=== PATIENT | male | born 1995 | race Two or more races ===

== ENCOUNTER 2021-05-12 12:49 | Emergency (ER) | payer MEDICAID ==
[~2021-05-12] VITALS: Ht 152.4 cm; Wt 81.6 kg
--- NOTE | 2021-05-12 13:00 | NUR ---
SUDDEN ONSET L SIDED CHEST PAIN WHILE CLEANING THE HOUSE AT 10AM. PT AAOX4, VSS. RR EVEN & UNLABORED. DENIES SOB, DIZZINESS, N/V AT THIS TIME. AWAITING EVAL BY ERMD. PLACED ON DATA ENTRY COORDINATOR, SR. WILL CONT TO MONITOR.
--- NOTE | 2021-05-12 13:05 | NUR ---
DR. ROQUE AT BS FOR EVAL.
[2021-05-12 13:23] LABS: BASOPHILS % (AUTO) 0.6 % (0.0-2.0); EOSINOPHILS % (AUTO) 13.1 % (0.0-6.0); HEMATOCRIT 47 % (39-51); HEMOGLOBIN 16.1 g/dL (13.5-17.5); LYMPHOCYTES # (AUTO) 1.9 K/uL (0.8-4.8); LYMPHOCYTES % (AUTO) 23.5 % (20.0-44.0); MEAN CORPUSCULAR HGB CONC 35 g/dl (31.0-36.0); MEAN CORPUSCULAR VOLUME 94 fL (80-96); MONOCYTES # (AUTO) 0.6 K/uL (0.1-1.30); MONOCYTES % (AUTO) 7.3 % (2.0-12.0); NEUTROPHILS # (AUTO) 4.4 K/uL (1.8-8.9); NEUTROPHILS % (AUTO) 55.5 % (43.0-81.0); PLATELET COUNT (AUTO) 243 K/uL (150-450)
[2021-05-12] MEDS ORDERED: IV NS 0.9% 500 ML BAG IV ONE (13:30)
[2021-05-12 13:44] LABS: ALANINE AMINOTRANSFERASE 164 U/L (12-78); ALKALINE PHOSPHATASE 120 U/L (46-116); ASPARTATE AMINOTRANSFERASE 78 U/L (15-37); BILIRUBIN,DIRECT 0.1 mg/dL (0.0-0.2); BILIRUBIN,TOTAL 0.4 mg/dL (0.2-1.0); CALCIUM, SERUM 8.7 mg/dL (8.5-10.1); CARBON DIOXIDE 27 mmol/L (21-32); CHLORIDE 99 mmol/L (98-107); CREATININE 1.1 mg/dL (0.6-1.3); GLUCOSE 108 mg/dL (74-106); POTASSIUM 3.9 mmol/L (3.5-5.1); SODIUM SERUM 138 mmol/L (136-145); TOTAL PROTEIN, SERUM 8.3 g/dL (6.4-8.2); UREA NITROGEN, BLOOD 10 mg/dL (7-18)
--- NOTE | 2021-05-12 14:30 | NUR ---
PT RESTING, DENIES CP, SOB, DIZZINESS, N/V AT THIS TIME. WILL CONT TO MONITOR.
--- NOTE | 2021-05-12 17:05 | NUR ---
Patient discharged to home in stable condition. Written and verbal after care instructions given. Patient verbalizes understanding of instruction .IV removed. Catheter intact and site benign. Pressure and 4x4 applied to site. No bleeding noted.
[2021-05-12 17:06] VITALS: BP 118/78
== END 2021-05-12 17:07 | disposition home or self-care (01) ==
LOC: ER 12:54
DX: R07.89 Other chest pain (principal); R06.00 Dyspnea, unspecified
CPT/HCPCS: 36415; 71045; 80048; 80076; 80307; 84484 ×2; 85025; 85378; 93005 ×3; 99285; J7040